=== PATIENT | female | born 2000 | race Caucasian/White ===

== ENCOUNTER 2023-07-09 10:25 | Outpatient (CLI) | payer BC, SELFPAY ==
--- OUTSIDE RECORDS SUMMARY | 2023-07-09 10:29 | XMS_ITS | Clinical Summary ---
Author Name Unknown Organization [facility] Address [address] [place] [address] Care Team Providers Care Director Of Social Work Name Role Phone SpringBreannae Primary Care Physician [phone] Encounter 05/16/22 - 09/29/[address] [address] Encounter Diagnosis Spastic hemiplegic cerebral palsy(Final) - Stiffness of unspecified joint, not elsewhere classified(Final) - Right-sided hemiplegic cerebral palsy(Discharge Diagnosis) - 05/16/22 Discharge Disposition: Home or Self Care Attending Physician: Mike Kirkland MD Admitting Physician: Mike Kirkland MD Referring Physician: Karen Dudley MD Allergies, Adverse Reactions, Alerts No Known Allergies Discharge Medications acetaminophen (Tylenol) Status: Ordered Start Date: 05/08/22 500 Milligrams Oral every 6 hours as needed pain, mild. rivaroxaban (Xarelto 20 mg o ral tablet) Status: Ordered Start Date: 08/11/22 1 tabs Oral every day. Problem List Condition Confirmation Course Effective Dates Status Health St atus Informant Anxiety Confirmed Active Factor V Leiden mutation Confirmed Active patient Cerebral palsy, hemiplegic Confirmed Active Right knee pain Confirmed Active Hospital Discharge Diagnosis Right-sided hemiplegic cerebral palsy(Discharge Diagnosis) - 05/16/22 (This Visit) Immunizations Given and Recorded Vaccine Date Status Refusal Reason influenza virus vaccine, inactivated 08/09/21 Von rded influenza virus vaccine, inactivated 05/21/20 Von rded influenza virus vaccine, inactivated 07/15/19 Von rded influenza virus vaccine, inactivated 06/13/18 Von rded influenza virus vaccine, inactivated 07/30/17 Von rded influenza virus vaccine, inactivated 05/09/16 Von rded influenza virus vaccine, inactivated 05/05/13 Von rded influenza virus vaccine, inactivated 06/08/12 Von rded influenza virus vaccine, inactivated 09/17/07 Von rded SARS-CoV-2 (COVID-19) mRNA-1273 vaccine 08/09/21 R ecorded SARS-CoV-2 (COVID-19) mRNA-1273 vaccine 11/29/20 R ecorded SARS-CoV-2 (COVID-19) mRNA-1273 vaccine 11/01/20 R ecorded tetanus/diphth/pertuss (Tdap) adult/adol 07/30/17 Recorded tetanus/diphth/pertuss (Tdap) adult/adol 04/07/12 Recorded meningococcal conjugate vaccine 07/30/17 Recorded meningococcal conjugate vaccine 04/07/12 Recorded human papillomavirus vaccine 07/30/17 Recorded human papillomavirus vaccine 04/07/12 Recorded varicella virus vaccine 09/17/07 Recorded Vital Signs Most recent to oldest [Reference Range]: 1 2 3 Pain Present Patient was not seen (09/29/22 1:53 PM) No actual or suspected pain (08/20/22 9:09 AM) No actual or suspected pain (08/11/22 9:36 AM) Social History Social History Type Response Tobacco Never (less than 100 in lifetime) Sex Treatment Plan Future Appointments Appointment Date:11/14/2022 03:40:00 PM Scheduled Provider:Mike Kirkland MD Location:[facility] - Clinic Appointment Type:PM and R - Botulinum Toxin Injection Appointment Date:12/23/2022 03:20:00 PM Scheduled Provider:Karen Dudley MD Location:[facility] - Clinic Appointment Type:Hand - Standard Patient Care team information Personnel Name: Breanna Londono MD Address: Address: [address]
--- OUTSIDE RECORDS SUMMARY | 2023-07-09 10:29 | XMS_ITS | Clinical Summary ---
Author Name Unknown Organization [facility] Address [address] [place] [address] Care Team Providers Care Crusher And Blender Operator Name Role Phone Breanna Londono Primary Care Physician [phone] Encounter 09/24/22 - 09/24/[address] [address]- Encounter Diagnosis Hemiplegia(Discharge Diagnosis) - 09/24/22 Discharge Disposition: Home or Self Care Attending Physician: Karen Dudley MD Admitting Physician: Karen Dudley MD Referring Physician: Karen Dudley MD Allergies, [...] knee pain Confirmed Active Hospital Discharge Diagnosis Hemiplegia(Discharge Diagnosis) - 09/24/22 (This Visit) Immunizations Given and Recorded Vaccine [...] Most recent to oldest [Reference Range]: 1 Pain Present No actual or suspect ed pain (09/24/22 2:16 PM) Able to self report Yes (09/24/22 2:16 PM) able to use numeric rating scale Yes (09/24/22 2:16 PM) Social History Social History Type Response Tobacco Never (less than 100 in lifetime) Sex Treatment Plan Future Appointments Appointment Date:11/14/2022 03:40:00 PM Scheduled Provider:Mike Kirkland MD Location:[facility] - Clinic Appointment Type:PM and R - Botulinum Toxin Injection Appointment Date:12/23/2022 03:20:00 PM Scheduled Provider:Karen Dudley MD Location:[facility] - Clinic Appointment Type:Hand - Standard Patient Care team information Personnel Name: Breanna Londono MD Address: Address: [address]
--- OUTSIDE RECORDS SUMMARY | 2023-07-09 10:29 | XMS_ITS | Clinical Summary ---
Author Name Unknown Organization [facility] Address [address] [place] [address] Care Team Providers Care Photonic Laboratory Technician Name Role Phone Breanna Londono Primary Care Physician Encounter Date(s): 06/19/23 - 06/19/[address] [address] [place] Discharge Disposition: Home or Self Care Attending Physician: Alma Duenas MD Admitting Physician: Alma Duenas MD Referring Physician: Alma Duenas MD Allergies, Adverse Reactions, Alerts No Known Allergies Discharge Medications acetaminophen (Tylenol) Status: Ordered Start Date: 05/08/22 500 Milligrams Oral every 6 hours as needed pain, mild. rivaroxaban (Xarelto 20 mg o ral tablet) Status: Ordered Start Date: 08/11/22 1 tabs Oral every day. Problem List Condition Confirmation Course Effective Dates Status Health St at Informant Patient ambulatory Confirmed Active pat ient Anxiety Confirmed Active Factor V Leiden mutation Confirmed Active patient Cerebral palsy, hemiplegic Confirmed Active Right knee pain Confirmed Active Age appropriate mental status Confirmed Active patient Contracture of muscle Confirmed Active patient Wears glasses Confirmed Active patient Procedures Procedure Date Related Diagnosis Body Site Status Alteration Muscle/Tendon, Up per Extremity 1 06/05/23 Completed Botulin toxin Completed closed reduction, percutaneo us pinning R thumb Completed R thumb pin removal & botox injections Completed 1auto-populated from documented surgical case Immunizations Given and Recorded Vaccine Date Status [...] Present No actual or suspect ed pain (06/19/23 3:02 PM) Social History Social History Type Response Nutrition/Health Diet: Regular. Tobacco Never (less than 100 in lifetime), Exposure to Secondhand Smoke: No. Sex Treatment Plan Future Appointments Appointment Date:07/01/2023 09:00:00 AM Scheduled Provider: Location:[facility] Clinic Appointment Type:Cast - Outpatient Removal (30 Min) Appointment Date:07/01/2023 09:40:00 AM Scheduled Provider:Alma Duenas MD Location:[facility] - Clinic Appointment Type:Hand - Post-Op Patient Care team information Personnel Name: Breanan Londono MD Address: Address: [address]
--- OUTSIDE RECORDS SUMMARY | 2023-07-09 10:29 | XMS_ITS | Clinical Summary ---
Author Name Unknown Organization [facility] Address [address] [place] [address] Care Team Providers Care Tax Compliance Officer Name Role Phone Breanna Londono Primary Care Physician Encounter Date(s): 12/30/22 - 12/30/[address] [address] [place] Encounter Diagnosis Hemiplegia(Discharge Diagnosis) - 12/30/22 Discharge Disposition: Home or Self Care Attending [...] Active Hospital Discharge Diagnosis Hemiplegia(Discharge Diagnosis) - 12/30/22 (This Visit) Immunizations Given and Recorded Vaccine [...] Present No actual or suspect ed pain (12/30/22 3:08 PM) Able to self report Yes (12/30/22 3:08 PM) able to use numeric rating scale Yes (12/30/22 3:08 PM) Social History Social History Type Response Tobacco Never (less than 100 in lifetime) Sex Patient Care team information Personnel Name: Breanna Londono MD Address: Address: [place] [id number]
--- OUTSIDE RECORDS SUMMARY | 2023-07-09 10:30 | XMS_ITS | Clinical Summary ---
Author Name Unknown Organization [facility] Address [address] [place] [address] Care Team Providers Care Star Route Mail Driver Name Role Phone SpringBreannae Primary Care Physician [phone] Encounter 08/11/22 - 08/11/[address] [address] Encounter Diagnosis Right-sided hemiplegic cerebral palsy(Discharge Diagnosis) - 08/11/22 Discharge Disposition: Home or Self Care Attending Physician: Tyson Sweeney MD Admitting Physician: Tyson Sweeney MD Referring Physician: Tyson Sweeney MD Allergies, Adverse Reactions, Alerts No Known [...] Diagnosis Right-sided hemiplegic cerebral palsy(Discharge Diagnosis) - 08/11/22 (This Visit) Immunizations Given and Recorded Vaccine [...] Most recent to oldest [Reference Range]: 1 Temperature Temporal Artery [36.5-38 Deg C] 36.6 Deg C (08/11/22 10:37 AM) Pain Present No actual or suspect ed pain (08/11/22 10:47 AM) Able to self report Yes (08/11/22 10:47 AM) able to use numeric rating scale Yes (08/11/22 10:47 AM) Social History Social History Type Response Tobacco Never (less than 100 in lifetime) Sex Treatment Plan Future Appointments Appointment Date:08/26/2022 02:40:00 PM Scheduled Provider:Karen Dudley MD Location:[facility] - Clinic Appointment Type:Hand - Standard Appointment Date:11/14/2022 03:40:00 PM Scheduled Provider:Mike Kirkland MD Location:[facility] - Clinic Appointment Type:PM and R - Botulinum Toxin Injection Patient Care team information Personnel Name: Breanna Londono MD Address: Address: [address]
--- OUTSIDE RECORDS SUMMARY | 2023-07-09 10:30 | XMS_ITS | Clinical Summary ---
Author Name Unknown Organization [facility] Address [address] [place] [phone] Care Team Providers Care Cold Type Artist Name Role Phone Breanna Londono Primary Care Physician [phone] Encounter Date(s): 07/01/23 - 07/01/[address] [address] [place] Encounter Diagnosis Cerebral palsy, hemiplegic(Discharge Diagnosis) - 07/01/23 Discharge Disposition: Home or Self Care Attending [...] Active patient Wears glasses Confirmed Active patient Hospital Discharge Diagnosis Cerebral palsy, hemiplegic(Discharge Diagnosis) - 07/01/23 (This Visit) Procedures Procedure Date Related Diagnosis Body Site [...] recent to oldest [Reference Range]: 1 2 Pain Present No actual or suspect ed pain (07/01/23 11:39 AM) No actual or suspected pain (07/01/23 9:41 AM) Able to self report Yes (07/01/23 9:41 AM) able to use numeric rating scale Yes (07/01/23 9:41 AM) Social History Social History Type Response Nutrition/Health Diet: Regular. Tobacco Never (less than 100 in lifetime), Exposure to Secondhand Smoke: No. Sex Treatment Plan Future Appointments Appointment Date:07/14/2023 01:30:00 PM Scheduled Provider:JOHN Casas/Yuri Location:[facility] - Rehab Appointment Type:OT - Outpatient Hand Therapy Evaluation Patient Care team information Personnel Name: Breanna Londono MD Address: Address: [address]
--- OUTSIDE RECORDS SUMMARY | 2023-07-09 10:30 | XMS_ITS | Clinical Summary ---
Author Name Unknown Organization [facility] Address [address] [place] [address] Care Team Providers Care Financial Engineer Name Role Phone Breanna Londono Primary Care Physician Encounter Date(s): 05/01/23 - 05/01/[address] [address] [place] Encounter Diagnosis Carpal tunnel syndrome, left(Discharge Diagnosis) - 05/01/23 Anxiety(Discharge Diagnosis) - 05/01/23 Cerebral palsy, hemiplegic(Discharge Diagnosis) - 05/01/23 Discharge Disposition: Home or Self Care Attending Physician: Alma Duenas MD Admitting Physician: Alma Duenas MD Referring Physician: Karen Dudley MD Allergies, [...] knee pain Confirmed Active Hospital Discharge Diagnosis Anxiety(Discharge Diagnosis) - 05/01/23 Carpal tunnel syndrome, left(Discharge Diagnosis) - 05/01/23 Cerebral palsy, hemiplegic(Discharge Diagnosis) - 05/01/23 (This Visit) Immunizations Given and Recorded Vaccine Date Status Refusal Reason influenza virus vaccine, inactivated 08/09/21 Von rded influenza virus vaccine, inactivated 05/21/20 Von rded influenza virus vaccine, inactivated 07/15/19 Von rded influenza virus vaccine, inactivated 06/13/18 Vno rded influenza virus vaccine, inactivated 07/30/17 Von [...] to oldest [Reference Range]: 1 Pain Present Yes actual or suspec ady pain (05/01/23 4:19 PM) Able to self report Yes (05/01/23 4:19 PM) able to use numeric rating scale Yes (05/01/23 4:19 PM) Primary Pain Location Left, Wrist (05/01/23 4:19 PM) Primary Pain Quality Chronic (05/01/23 4:19 PM) Social History Social History Type Response Tobacco Never (less than 100 in lifetime) Sex Treatment Plan Future Appointments Appointment Date:05/05/2023 01:45:00 PM Scheduled Provider: Location:[facility] Appointment Type:US Patient Care team information Personnel Name: Breanna Londono MD Address: Address: [address]
--- OUTSIDE RECORDS SUMMARY | 2023-07-09 10:30 | XMS_ITS | Clinical Summary ---
Author Name Unknown Organization [facility] Address [address] [place] [address] Care Team Providers Care Facilities Maintenance Supervisor Name Role Phone Breanna Londono Primary Care Physician Encounter Date(s): 06/05/23 - 06/05/[address] [address] Encounter Diagnosis Cerebral palsy, hemiplegic(Discharge Diagnosis) - 06/05/23 Cerebral palsy(Discharge Diagnosis) - 06/05/23 Discharge Disposition: Home or Self Care Attending Physician: Alma Duenas MD Admitting Physician: Alma Duenas MD Referring Physician: Alma Duenas MD Allergies, Adverse Reactions, Alerts No Known Allergies Discharge Medications acetaminophen (acetaminophen 325 mg oral tablet) Status: Ordered Start Date: 06/05/23 Stop Date: 06/15/23 3 tabs Oral every 6 hours as needed for pain, mild for 10 Days. Refills: 0. Ordering provider: MD NOE Enamorado[address] [id number] acetaminophen (Tylenol) Status: Ordered Start Date: 05/08/22 500 Milligrams Oral every 6 hours as needed pain, mild. diazePAM (diazePAM 5 mg oral tablet) Status: Ordered Start Date: 06/05/23 Stop Date: 06/19/23 1 tabs Oral every 6 hours as needed spasms, moderate for 14 Days. Refills: 0. Ordering provider: Alma Duenas MD [address] [id number] rivaroxaban (Xarelto 20 mg o ral tablet) Status: Ordered Start Date: 08/11/22 1 tabs Oral every day. Problem List Condition Confirmation Course Effective Dates Status Health St atus Informant Patient ambulatory Confirmed Active pat ient Anxiety Confirmed Active Factor V Leiden mutation Confirmed Active patient Cerebral palsy, hemiplegic Confirmed Active Right knee pain Confirmed Active Age appropriate mental status Confirmed Active patient Contracture of muscle Confirmed Active patient Wears glasses Confirmed Active patient Hospital Discharge Diagnosis Cerebral palsy(Discharge Diagnosis) - 06/05/23 Cerebral palsy, hemiplegic (Discharge Diagnosis) - 06/05/23 (This Visit) Procedures Procedure Date Related Diagnosis [...] to oldest [Reference Range]: 1 2 3 Temperature Temporal Artery [36.5-38 Deg C] 36.5 Deg C (06/05/23 4:50 PM) 36.1 Deg C *LOW* (06/05/23 3:45 PM) 36.6 Deg C (06/05/23 3:32 PM) Heart Rate Monitored [50-90 bpm] 72 bpm (06/05/23 4:50 PM) 68 bpm (06/05/23 3:45 PM) 63 bpm (06/05/23 3:32 PM) Blood Pressure [100-140/60-90 mmHg] 109/67mmHg (06/05/23 4:50 PM) 114/76mmHg (06/05/23 3:45 PM) 142/86mmHg *HI* (06/05/23 3:32 PM) Mean Arterial Pressure, Cuff [65-140 mmHg] 86 mmHg (06/05/23 3:45 PM) Mean Arterial Pressure, Cuff 75 mmHg mmHg (06/05/23 2:57 PM) 68 mmHg mmHg (06/05/23 2:54 PM) Respiratory Rate [10-24 br/min] 18 br/min (06/05/23 4:50 PM) 16 br/min (06/05/23 3:45 PM) 16 br/min (06/05/23 3:32 PM) Weight Dosing 87.7 kg (06/05/23 12:22 PM) Oxygen Therapy Room air (06/05/23 4:50 PM) Room air (06/05/23 3:45 PM) Room air (06/05/23 3:32 PM) SpO2 [92-100 %] 99 % (06/05/23 4:50 PM) 99 % (06/05/23 3:45 PM) 100 % (06/05/23 3:32 PM) Pain Present No actual or suspected pain (06/05/23 4:18 PM) Primary Pain Alleviating Factors Warm blankets, Extremity elevated (06/05/23 4:50 PM) Warm blankets, Extremity elevated (06/05/23 3:45 PM) Warm blankets, Extremity elevated (06/05/23 3:32 PM) Social History Social History Type Response Nutrition/Health Diet: Regular. Tobacco Never (less than 100 in lifetime), Exposure to Secondhand Smoke: No. Sex Treatment Plan Future Appointments Appointment Date:07/01/2023 09:00:00 AM Scheduled Provider: Location:[facility] - Clinic Appointment Type:Cast - Outpatient Removal (30 Min) Appointment Date:07/01/2023 09:40:00 AM Scheduled Provider:Alma Duenas MD Location:[facility] - Clinic Appointment Type:Hand - Post-Op Patient Care team information Personnel Name: Breanna Londono MD Address: Address: [address]
--- OUTSIDE RECORDS SUMMARY | 2023-07-09 10:30 | XMS_ITS | Clinical Summary ---
Author Name Unknown Organization [facility] Address [address] [place] [address] Care Team Providers Care Stamping Machine Operator Name Role Phone Breanna Londono Primary Care Physician Encounter Date(s): 05/14/23 - 05/14/[address] [address] [place] Encounter Diagnosis Cerebral palsy, hemiplegic(Discharge Diagnosis) - 05/14/23 Discharge Disposition: Home or Self Care Attending [...] knee pain Confirmed Active Hospital Discharge Diagnosis Cerebral palsy, hemiplegic(Discharge Diagnosis) - 05/14/23 (This Visit) Immunizations Given and Recorded Vaccine [...] Present No actual or suspect ed pain (05/14/23 7:41 AM) Able to self report Yes (05/14/23 7:41 AM) able to use numeric rating scale Yes (05/14/23 7:41 AM) Social History Social History Type Response Tobacco Never (less than 100 in lifetime) Sex Treatment Plan Extracted from: Title:Clinical Document Author:Brendon Enamorado Date:05/14/23 Originating Site:Patient [facility] e Distant Site:[address] [address] - [facility] Reason Telemedicine is appropriate: Telemedicine is an appropriate and effective means of providing clinical care to patients with the medical condition(s) described within the documentation of this telemedicine visit.?Telemedicine is supported by [facility] for the delivery of convenient and high-quality care. Mode of Transmission:??Telemedicine is provided via real-time secure video conferencing. Time Service Began: 7:40??AM Time Service Ended: 7:48??AM Consent and Disclosure Statement: This visit was conducted via??Virtual Care??at the patient / legal decision maker? s request due to current community concerns regarding COVID-19. The treatment plan and information provided to the patient by this Practitioner is based on a review of the patient? s chart, as well as the information provided by the patient/ legal decision maker during this visit. As a result, this Practitioner may not be aware of certain facts that may limit or affect the assessment or diagnosis of the patient and recommended treatment. The patient / legal decision maker was informed that if the patient? s condition worsens or new symptoms occur, they should seek medical attention. Patient Care team information Personnel Name: Breanna Londono MD Address: Address: [address]
--- OUTSIDE RECORDS SUMMARY | 2023-07-09 10:30 | XMS_ITS | Patient Health Record ---
Author Name Unknown Organization [facility] Address [address] [place], [place] [id number] Care Team Providers Care Mysql Database Developer Name Role Phone None, No PCP Primary Care Provider Maria Teresa e Nery Moore Unavailable ALLERGIES No Known Allergies REASON FOR REFERRAL Reason [facility] Updated 04/23 Diagnosis 1 Levator spasm (M62.8 38) Referral Organization [facility] Referring Provider First Name Nery Referring Provider Last Name John Allen er Referring Provider Speciality Obstetrici an and grader patrol Referred Provider Specialty Physical The rapist General Notes Nery Hadley 01:11:26 PM > Needs referral for [facility] in [place], Ms Ortiz, for pelvic floor therapy. She has levator spasm. She requested her specifically, Vonda Chen 03/20/2023 01:30:10 PM > Referral made and faxed to [facility] using [phone] for phone and [phone] for fax., Tariq De Leon 03/25/2023 02:24:17 PM >Called [facility] they take a week to call PT's they will call her towards the end of the week, Tariq De Leon 04/03/2023 11:46:17 AM >Called [facility]- was on hold for over 5 mins. will back on 04/06- PT was in the ER yesterday for chest pains, Tariq De Leon 04/15/2023 09:27:07 AM >Called [facility] - Referral is there but it says pending PA - waiting on insurance, Tariq De Leon 04/23/2023 10:02:49 AM >Called PT LVM asking for update on referral, Tariq De Leon 04/30/2023 03:51:27 PM > PT has been seen and has a bunch of appointments set up Referral Priority Routine MEDICATIONS Medication SIG (Take, Route, Frequency, Duration) Notes Start Date End Date Status Xarelto 20 MG 1 tablet with food Orally Once a day 25MG Active SOCIAL HISTORY Tobacco Use: Social History Observation Description Date Details (start date - stop date) Never Smoker NA - NA Sex Assigned At : Social History Observation Description Sex Assigned At Unknown Tobacco Use/Smoking Question Answer Notes Are you a nonsmoker PROBLEMS Problem Type ICD Code Onset Dates Problem Status W/U Status Risk SNOMED Code Notes Problem Other cerebral palsy (G80.8) Active confirmed 370636999 VITAL SIGNS Blood pressure diastolic 80 mm Hg 03/19/2023 Height 65.25 in 03/19/2023 Blood pressure systolic 110 mm Hg 03/19/2023 Weight 187.8 lbs 03/19/2023 BMI 31.01 kg/m2 03/19/2023 Encounters Encounter Location Date Provider Diagnosis [facility] [address] [place] [address] 03/19/2023 Nery Hadley Annual physical exam Z00.00 ; Other cerebral palsy G80.8 and Levator spasm M62.838 [facility] [address] [place], [place] [id number] 03/19/2023 Nery Hadley ASSESSMENTS Encounter Date Diagnosis Assessment Notes Treatment Notes Treatment Clinical Notes 03/19/2023 Other cerebral palsy (ICD-10 - G80.8) 03/19/2023 Annual physical exam (ICD-10 - Z00.00) 03/19/2023 Levator spasm (ICD-10 - M62.838) 03/19/2023 Other 1. Unable to do pap smear, significant pelvic floor dysfunction, levator spasm. Will refer to PT. She wants to see ms Ortiz in [place] 2. Will return as needed 3. Wedding in 8 months! 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
--- OUTSIDE RECORDS SUMMARY | 2023-07-09 10:30 | XMS_ITS | Clinical Summary ---
Author Name Unknown Organization [facility] Address [address] [place] [phone] Care Team Providers Care Licensed Land Surveyor Name Role Phone Breanna Londono Primary Care Physician [phone] Encounter Date(s): 05/05/23 - 05/05/[address] [address] [place] Discharge Disposition: Home or [...] Confirmed Active Right knee pain Confirmed Active Immunizations Given and Recorded Vaccine Date Status [...] 04/07/12 Recorded varicella virus vaccine 09/17/07 Recorded Social History Social History Type Response Tobacco Never (less than 100 in lifetime) Sex Treatment Plan Future Appointments Appointment Date:05/14/2023 07:30:00 AM Scheduled Provider:Alma Duenas MD Location:[facility] - Appointment Type:Hand Virtual Care - Standard Patient Care team information Personnel Name: Breanna Londono MD Address: Address: [address]
--- OUTSIDE RECORDS SUMMARY | 2023-07-09 10:30 | XMS_ITS | Clinical Summary ---
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 Name Role Phone Breanna Londono Primary Care Physician Encounter Date(s): 02/06/23 - 04/09/[address] [id number]- Encounter Diagnosis Other deformity of right finger(s)(Final) - Contracture, right wrist(Final) - Hemiplegia, unspecified affecting unspecified side(Final) - Discharge Disposition: Home or Self Care Attending Physician: Mike Kirkland MD Admitting Physician: Mike Kirkland MD Referring Physician: Mike Kirkland MD Allergies, Adverse Reactions, Alerts No Known [...] [Reference Range]: 1 2 3 Pain Present Yes actual or suspected pain (04/03/23 9:11 AM) No actual or suspected pain (03/27/23 3:35 PM) No actual or suspected pain (03/17/23 9:03 AM) Social History Social History Type Response Tobacco Never (less than 100 in lifetime) Sex Treatment Plan Future Appointments Appointment Date:05/01/2023 04:10:00 PM Scheduled Provider:Alma Duenas MD Location:[facility] Clinic Appointment Type:Hand - Standard Patient Care team information Personnel Name: Breanna Londono MD Address: Address: [address]
--- NOTE | 2023-07-09 11:51 | W.ANESCHARGE ---
Anesthesia Charges Start Date/Time Anesthesia Start Date: 07/09/23 Anesthesia Start Time: 11:18 Stop Date/Time Anesthesia Stop Date: 07/09/23 Anesthesia Stop Time: 11:47
== END 2023-07-09 10:26 | disposition home or self-care (01) ==
PROVIDERS: Visit Provider Surgery
DX: Z12.11 Encounter for screening for malignant neoplasm of colon (principal); K64.9 Unspecified hemorrhoids; K62.1 Rectal polyp; Z86.010 Personal history of colon polyps
CPT/HCPCS: 00811; 45385; 88305; J2704